=== PATIENT | female | born 1975 | race Hispanic/Latino ===

== ENCOUNTER 2023-06-28 06:33 | Inpatient (IN) | payer SELFPAY ==
[2023-06-28] VITALS (24 sets, daily range): BP systolic 98–150; BP diastolic 71–107; PULSE 63–80; RESP 13–21; O2SAT 97
[~2023-06-28] VITALS: Ht 162.6 cm; Wt 63.3 kg
[2023-06-28] MEDS ORDERED: 0.9%NACL 1000ML 3,000 ML IV ONE (07:00)
[2023-06-28 07:24] LABS: BASOPHILS # (AUTO) 0.04 K/uL (0.00-0.20); BASOPHILS % (AUTO) 0.7 % (0.0-5.0); EOSINOPHILS # (AUTO) 0.04 K/uL (0.00-0.70); EOSINOPHILS % (AUTO) 0.7 % (0.0-8.0); HEMATOCRIT 42.2 % (36-48); IMMATURE GRANULOCYTE ABSOLUTE 0.02 K/uL (0-1); LYMPHOCYTES # (AUTO) 2.3 K/uL (1.0-4.8); LYMPHOCYTES % (AUTO) 41.2 % (21.0-51.0); MEAN CORPUSCULAR HGB CONC 34.4 g/dL (32.0-36.0); MEAN CORPUSCULAR VOLUME 93.2 fL (79-99); MONOCYTES # (AUTO) 0.5 K/uL (0.1-1.0); MONOCYTES % (AUTO) 8.4 % (3.0-13.0); NEUTROPHILS # (AUTO) 2.7 K/uL (1.8-7.7); NEUTROPHILS % (AUTO) 48.6 % (40.0-77.0); PLATELET COUNT (AUTO) 166 K/uL (130-400); RED BLOOD CELL COUNT(AUTO) 4.53 MIL/uL (4.00-5.50); RED CELL DISTRIBUTION WIDTH 13.1 % (11.0-15.5); WHITE BLOOD COUNT (AUTO) 5.5 K/uL (4.8-10.8)
[2023-06-28] MEDS ORDERED: GLUCAGON 1MG KIT 1 MG ML ONE (07:30)
[2023-06-28 07:44] LABS: CREATININE 1.2 mg/dL (0.5-1.5); MAGNESIUM 1.7 mg/dL (1.80-2.40); POTASSIUM 3.5 mmol/L (3.5-5.1); SALICYLATE 8.7 mg/dL (2.8-20.0)
[2023-06-28] MEDS ORDERED: 0.9%NACL 1000ML 1,000 ML IV SCH (11:30)
[2023-06-28] MEDS ORDERED: MAGNESIUM 2GM PREMIX 50ML 50 ML IV SCH (11:30)
[2023-06-28] MEDS ORDERED: ACETAMINOPHEN 500 MG TABLET PO PRN (11:30)
[2023-06-28 12:08] LABS: INR 1.03 (0.85-1.15); PROTHROMBIN TIME 11.9 SEC (9.6-11.6)
[2023-06-28 12:10] LABS: PARTIAL THROMBOPLASTIN TIME 27.9 SEC (26.3-35.5)
[2023-06-28] MEDS ORDERED: SILD20TA14 PO (12:15)
[2023-06-28] MEDS: FAMOTIDINE 20MG VIAL IV SCH ×2 (12:22→23:15)
[2023-06-28] MEDS: CEFTRIAXONE 1G VIAL IVPB SCH (12:22)
[2023-06-28 12:26] LABS: ALBUMIN 2.7 g/dL (3.5-5.0); BILIRUBIN,DIRECT 0.1 mg/dL (0.0-0.3); BILIRUBIN,TOTAL 0.6 mg/dL (0.2-1.0); THYROID STIMULATING HORMONE 0.25 uIU/mL (0.36-3.74); TOTAL PROTEIN, SERUM 5.3 g/dL (6.0-8.3)
[2023-06-28] MEDS ORDERED: NOREPINEPHRIN 4MG/NS 250ML 250 ML IV SCH (12:30)
[2023-06-28] MEDS ORDERED: THIAMINE HCL 100 MG/ML 2ML VIAL IVP ONE (13:00)
[2023-06-28] MEDS ORDERED: MIDODRINE HCL 5 MG TABLET PO PRN (14:00)
[2023-06-28] MEDS ORDERED: ENOXAPARIN SODIUM 60 MG/0.6 ML SQ SCH (14:30)
[2023-06-28 15:40] LABS: ABG BASE EXCESS -7.1 mmol/L (-2.0-3.0); ABG HCO3 15.7 mmol/L (21.0-28.0); ABG PCO2 26 mmHg (32-45); ABG PH 7.403 (7.35-7.450); DEVICE COMMENT RR; PO2, ARTERIAL BG 60.9 mmHg (83.0-108.0); VENT MODE, BG NC (ROOM AIR)
[2023-06-28] MEDS ORDERED: ONDANSETRON 4MG INJ ONE (16:11)
[2023-06-28] MEDS ORDERED: ONDANSETRON 4MG INJ IVP PRN (16:30)
[2023-06-28 17:02] LABS: SARS-CoV-2, RNA, NAAT NEGATIVE SARS CoV-2 (NEGATIVE)
[2023-06-28 17:08] LABS: INFLUENZA TYPE A Negative For Type A (NEGATIVE); INFLUENZA TYPE B Negative For Type B (NEGATIVE)
[2023-06-28] MEDS ORDERED: KCL 20 MEQ ERTAB PO PRN (18:00)
[2023-06-28] MEDS ORDERED: POTASSIUM CHLORIDE 10% ELIXIR 20 MEQ/15 ML UDCUP PO PRN (18:00)
[2023-06-28] MEDS ORDERED: POTASSIUM CHLORIDE 20MEQ/100ML 100 ML IV PRN (18:00)
[2023-06-28 18:03] LABS: APPEARANCE,URINE CLEAR (CLEAR); BILIRUBIN,URINE NEGATIVE (NEGATIVE); GLUCOSE, URINE (UA) NEGATIVE (NEGATIVE); KETONES,URINE NEGATIVE (NEGATIVE); LEUKOCYTE ESTERASE ,URINE NEGATIVE Leu/uL (NEGATIVE); NITRATE,URINE NEGATIVE (NEGATIVE); OCCULT BLOOD,URINE NEGATIVE (NEGATIVE); PH,URINE 5.5 (5.0-8.0); PROTEIN,URINE 20 mg/dL (NEGATIVE); UROBILINOGEN,URINE 0.2 mg/dL (0.2-1.0)
[2023-06-28 18:05] LABS: COLOR,URINE YELLOW (YELLOW)
[2023-06-28 18:06] LABS: ADD UA MICROSCOPIC YES
[2023-06-28 18:07] LABS: MUCUS,URINE RARE LPF (None Seen); RBC,URINE 0-1 /HPF (0-1); SQUAMOUS EPITHELIAL CELL,UR RARE /HPF (0-2); WBC,URINE 0-1 /HPF (0-1)
[2023-06-28 18:11] LABS: AMPHET/METH SCREEN,URINE POSITIVE (NEGATIVE); BARBITURATE SCREEN, URINE NEGATIVE (NEGATIVE); BENZODIAZEPINES SCREEN,URINE NEGATIVE (NEGATIVE); CANNABINOID SCREEN,URINE NEGATIVE (NEGATIVE); COCAINE SCREEN,URINE NEGATIVE (NEGATIVE); OPIATE SCREEN,URINE NEGATIVE (NEGATIVE); PHENCYCLIDINE SCREEN,URINE NEGATIVE (NEGATIVE)
[2023-06-28 18:27] LABS: HEPATITIS A IGM ANTIBODY Non-Reactive (Nonreactive); HEPATITIS B CORE IGM ANTIBODY Non-Reactive (Negative); HEPATITIS B SURFACE ANTIGEN Non-Reactive (Nonreactive); HEPATITIS C ANTIBODY Non-Reactive (Nonreactive)
[2023-06-28] MEDS: ENOXAPARIN SODIUM 60 MG/0.6 ML SQ SCH (21:16)
[2023-06-29] VITALS (48 sets, daily range): BP systolic 82–125; BP diastolic 31–90; PULSE 60–86; RESP 8–27; O2SAT 94–96
[2023-06-29 05:40] LABS: BASOPHILS # (AUTO) 0.04 K/uL (0.00-0.20); BASOPHILS % (AUTO) 0.7 % (0.0-5.0); EOSINOPHILS # (AUTO) 0.08 K/uL (0.00-0.70); EOSINOPHILS % (AUTO) 1.4 % (0.0-8.0); HEMATOCRIT 42.2 % (36-48); IMMATURE GRANULOCYTE ABSOLUTE 0.01 K/uL (0-1); LYMPHOCYTES # (AUTO) 2.6 K/uL (1.0-4.8); LYMPHOCYTES % (AUTO) 44.4 % (21.0-51.0); MEAN CORPUSCULAR HEMOGLOBIN 31.2 pg (27.0-33.0); MEAN CORPUSCULAR HGB CONC 33.9 g/dL (32.0-36.0); MEAN CORPUSCULAR VOLUME 91.9 fL (79-99); MONOCYTES # (AUTO) 0.4 K/uL (0.1-1.0); MONOCYTES % (AUTO) 6.8 % (3.0-13.0); NEUTROPHILS # (AUTO) 2.7 K/uL (1.8-7.7); NEUTROPHILS % (AUTO) 46.5 % (40.0-77.0); PLATELET COUNT (AUTO) 188 K/uL (130-400); RED BLOOD CELL COUNT(AUTO) 4.59 MIL/uL (4.00-5.50); RED CELL DISTRIBUTION WIDTH 13.5 % (11.0-15.5); WHITE BLOOD COUNT (AUTO) 5.9 K/uL (4.8-10.8)
[2023-06-29 06:24] LABS: ALBUMIN 2.6 g/dL (3.5-5.0); BILIRUBIN,TOTAL 0.5 mg/dL (0.2-1.0); MAGNESIUM 2.1 mg/dL (1.80-2.40); POTASSIUM 4.1 mmol/L (3.5-5.1); TOTAL PROTEIN, SERUM 5.5 g/dL (6.0-8.3)
[2023-06-29] MEDS: ENOXAPARIN SODIUM 60 MG/0.6 ML SQ SCH ×2 (09:10→20:59)
[2023-06-29] MEDS: Vitamin B Complex/Vit C/Folic Acid PO SCH (09:13)
[2023-06-29] MEDS: FAMOTIDINE 20MG VIAL IV SCH ×2 (10:32→23:59)
[2023-06-29] MEDS: CEFTRIAXONE 1G VIAL IVPB SCH (12:23)
[2023-06-29] MEDS ORDERED: LACTULOSE 20 GM/30 ML UDCUP PO PRN (23:00)
[2023-06-30] VITALS: BP 121/86; PULSE 76; RESP 18
[2023-06-30 04:00] VITALS: BP 119/93; PULSE 72; RESP 16
[2023-06-30 08:00] VITALS: BP 125/90; PULSE 77; RESP 18
[2023-06-30 08:45] VITALS: O2SAT 96
[2023-06-30] MEDS: Vitamin B Complex/Vit C/Folic Acid PO SCH (09:00)
[2023-06-30] MEDS: ENOXAPARIN SODIUM 60 MG/0.6 ML SQ SCH (10:31)
[2023-06-30] MEDS: FAMOTIDINE 20MG VIAL IV SCH (10:55)
[2023-06-30 12:00] VITALS: BP 123/79; PULSE 72; RESP 19
[2023-06-30] MEDS ORDERED: MIDO5TAB4 PO (12:11)
== END 2023-06-30 14:50 | disposition home or self-care (01) | DRG 312 ==
LOC: EDH 06:33 → EDHIP 06:34 → UNDOADMIN 11:13 → EDHIP 11:14 → 2CV 17:50 → 4BH 06-29 18:22
PROVIDERS: ADMIT Internal Medicine; ATTEND Internal Medicine
DX: I95.2 Hypotension due to drugs (principal); J96.01 Acute respiratory failure with hypoxia; I26.09 Other pulmonary embolism with acute cor pulmonale; E87.20 Acidosis, unspecified; E46 Unspecified protein-calorie malnutrition; Z20.822 Contact with and (suspected) exposure to COVID-19; I27.21 Secondary pulmonary arterial hypertension; I50.813 Acute on chronic right heart failure; I11.0 Hypertensive heart disease with heart failure; K75.9 Inflammatory liver disease, unspecified; F41.1 Generalized anxiety disorder; E05.90 Thyrotoxicosis, unspecified without thyrotoxic crisis or storm; T44.7X5A Adverse effect of beta-adrenoreceptor antagonists, initial encounter; T46.4X5A Adverse effect of angiotensin-converting-enzyme inhibitors, initial encounter; F41.0 Panic disorder [episodic paroxysmal anxiety]; R42 Dizziness and giddiness; F15.10 Other stimulant abuse, uncomplicated; Z90.49 Acquired absence of other specified parts of digestive tract; Z90.710 Acquired absence of both cervix and uterus; Z87.891 Personal history of nicotine dependence; Z91.148 Patient's other noncompliance with medication regimen for other reason; Y92.89 Other specified places as the place of occurrence of the external cause; Z68.24 Body mass index [BMI] 24.0-24.9, adult
CPT/HCPCS: 36415; 36600; 71045; 76705; 80048; 80053; 80074; 80076; 80305; 81001; 82010; 82533; 82550; 82803; 82948; 83605; 83735; 84145; 84439; 84443; 84481; 84703; 85025; 85378; 85610; 85651; 85730; 86140; 86850; 86900; 86901; 87040; 87088; 87635; 87804; 93005; 93306; G0378; G0481; J0696; J1610; J1650; J2405; J3411; J3475; J3490

== ENCOUNTER → 2024-01-11 | Outpatient (CLI) | payer OTHER ==
[~2024-01-11] MED LIST: MIDO5TAB4 PO
== END | disposition home or self-care (01) ==
LOC: RAH 15:39
PROVIDERS: ATTEND Internal Medicine
DX: I27.20 Pulmonary hypertension, unspecified (principal)
CPT/HCPCS: 71046

== ENCOUNTER 2024-05-05 12:32 | Emergency (ER) | payer MEDICAID, OTHER ==
[~2024-05-05] VITALS: Ht 162.6 cm; Wt 59.0 kg
--- NOTE | 2024-05-05 12:37 | ERN ---
ED Note History of Present Illness Stated Complaint: LEFT SIDE SHARP PAIN Chief Complaint: Rib Pain Time Seen by MD: 12:32 Dictation: PATIENT IS A 48-YEAR-OLD FEMALE HERE WITH COMPLAINTS OF SEVERE LEFT ANTERIOR CHEST WALL TENDERNESS, DESCRIBES IT HAS A CRAMP. SAID IT STARTED LAST NIGHT. WORSE WITH PALPATION OR INSPIRATION. NO NAUSEA VOMITING NO ABDOMINAL PAIN. SHE DOES HAVE A HISTORY OF PULMONARY HYPERTENSION. Allergies: Coded Allergies: No Known Drug Allergies (Unverified Allergy, Unknown, 06/28/23) Home Meds Active Scripts Midodrine HCl (Midodrine HCl) 5 Mg Tablet, 5 MG PO TID for 30 Days, #90 TAB 0 Refills Prov:BARRY CASTANEDA MD 06/30/23 Past Medical History Past Medical History: Hypertension Additional Past Medical Hx: AORTIC TEAR Surgical History: Cholecystectomy History: Not Applicable RN Note Reviewed/Agreed w/PFSH: Yes Review of System Dictation CONSTITUTIONAL: NEGATIVE EXCEPT FOR HPI HEAD/FACE: NEGATIVE EXCEPT FOR HPI EENT: NEGATIVE EXCEPT FOR HPI RESPIRATORY: NEGATIVE EXCEPT FOR HPI FOCAL LEFT ANTERIOR CHEST WALL TENDERNESS GASTROINTESTINAL/ABDOMINAL: NEGATIVE EXCEPT FOR HPI GENITOURINARY: NEGATIVE EXCEPT FOR HPI MUSCULOSKELETAL: NEGATIVE EXCEPT FOR HPI INTEGUMENTARY: NEGATIVE EXCEPT FOR HPI NEUROLOGICAL/PSYCH: NEGATIVE EXCEPT FOR HPI HEMATOLOGIC/LYMPHATIC: NEGATIVE EXCEPT FOR HPI ALL SYSTEMS NEGATIVE, EXCEPT NOTED ABOVE. 13 POINT REVIEW OF SYSTEMS ASSESSED AND ALL NEGATIVE EXCEPT FOR ABOVE. Initial Vital Sign VS Vital Signs Date Time Temp Pulse Resp B/P (MAP) Pulse Ox O2 Delivery O2 Flow Rate FiO2 05/05/24 12:35 97.0 86 20 135/96 98 Room Air 05/05/24 12:52 0 21 Physical Exam Dictation VITAL SIGNS REVIEWED GENERAL APPEARANCE: ALERT, ORIENTED X 3, MODERATE ACUTE DISTRESS, WELL DEVEL OPED, NOURISHED. HEAD AND FACE: NON-TRAUMATIC. EYES: PERRL, PINK CONJUNCTIVAS, EYELID NO TRAUMA, ANTERIOR CHAMBER WITH ARCUS SE NILIS. EARS: PINNAS INTACT AND NO SIGNS OF TRAUMA OR ERYTHEMA EAR CANALS CLEAR AND NO DISCHARGE TM NO ERYTHEMA NOSE: NO DISCHARGE, NO BLEEDING. OROPHARYNX: MOUTH NORMAL, TONGUE PINK, PHARYNX CLEAR,NO ERYTHEMA, TONSILS NO EXUDATES, NO ABSCESSES NOTED, MUCOUS MEMBRANE MOIST NECK: SUPPLE, NON-TENDER, NO THYROMEGALY, NO MASSES, NO JVD, NO BRUITS BREAST:DEFERRED CHEST: FOCAL TENDERNESS TO LEFT ANTERIOR CHEST, NO CREPITUS, NO PARADOXICAL MOVEMENT, NO RETRACTIONS REPRODUCES WITH PALPATION OR INSPIRATION LUNGS:CLEAR, WELL-VENTILATED, SYMMETRIC, NO RALES, NO WHEEZING, NO RHONCHI, NO STRIDOR, GOOD BREATH SOUNDS BILATERALLY HEART: REGULAR RATE, REGULAR RHYTHM, NO MURMUR, NO GALLOPS VASCULAR: NO PERIPHERAL EDEMA, ABDOMEN: SOFT, POSITIVE BOWEL SOUNDS, NONDISTENDED, NO GUARDING, NONTENDER, NO REBOUND, NO MASSES NO HEPATOMEGALY, NO SPLENOMEGALY, NO COHEN'S SIGN, NO HERNIAS. RECTAL: DEFERRED GENITAL: DEFERRED NEUROLOGICAL: NORMAL SPEECH, MOTOR FUNCTION INTACT, SENSORY FUNCTION INTACT MUSCULOSKELETAL: NECK NONTENDER, FULL RANGE OF MOTION, BACK NONTENDER, FULL RANGE OF MOTION, EXTREMITIES: NONTENDER, FULL RANGE OF MOTION SKIN: COLOR PINK, DRY, NO TURGOR, NO RASH, NO LACERATIONS, NO ABRASIONS, NO CONTUSIONS. LYMPHATIC: DEFERRED Results (Laboratory/Radiology) Laboratory/Radiology Laboratory Tests Test 05/05/24 12:52 White Blood Count 5.9 K/uL (4.8-10.8) Red Blood Count 4.89 MIL/uL (4.00-5.50) Hemoglobin 15.5 g/dL (12.0-16.0) Hematocrit 43.8 % (36-48) Mean Corpuscular Volume 89.6 fL (79-99) Mean Corpuscular Hemoglobin 31.7 pg (27.0-33.0) Mean Corpuscular Hemoglobin Concent 35.4 g/dL (32.0-36.0) Red Cell Distribution Width 12.7 % (11.0-15.5) Platelet Count 236 K/uL (130-400) Mean Platelet Volume 10.2 fL (7.5-10.5) Immature Granulocyte % (Auto) 0.2 % (0-1) Neutrophils (%) (Auto) 58.3 % (40.0-77.0) Lymphocytes (%) (Auto) 31.6 % (21.0-51.0) Monocytes (%) (Auto) 7.9 % (3.0-13.0) Eosinophils (%) (Auto) 1.5 % (0.0-8.0) Basophils (%) (Auto) 0.5 % (0.0-5.0) Neutrophils # (Auto) 3.4 K/uL (1.8-7.7) Lymphocytes # (Auto) 1.9 K/uL (1.0-4.8) Monocytes # (Auto) 0.5 K/uL (0.1-1.0) Eosinophils # (Auto) 0.09 K/uL (0.00-0.70) Basophils # (Auto) 0.03 K/uL (0.00-0.20) Absolute Immature Granulocyte (auto 0.01 K/uL (0-1) Nucleated Red Blood Cells 0.0 % (0.0-0.19) Sodium Level 141 mmol/L (136-145) Potassium Level 3.6 mmol/L (3.5-5.1) Chloride Level 106 mmol/L (101-111) Carbon Dioxide Level 25 mmol/L (21-32) Blood Urea Nitrogen 7 mg/dL (7-18) Creatinine 0.6 mg/dL (0.5-1.0) Glomerular Filtration Rate Calc 109 mL/min (>90) Random Glucose 118 mg/dL (70-105) H Total Calcium 8.7 mg/dL (8.5-10.1) Troponin I High Sensitivity 10 ng/L (4-50) CHEST 1VW REASON: LEFT ANTERIOR CHEST PAIN WORSE WITH PALPATION COMPARISON: 01/11/2024 FINDINGS: Single view of the chest was obtained. Lungs are clear. Heart size is normal. There is no pulmonary vascular congestion. Mediastinum and bony thorax appear unremarkable. IMPRESSION: 1. Normal single view chest x-ray. Labs Reviewed?: Yes EKG Comment: EKG SINUS RHYTHM/HEART RATE 76 NONSPECIFIC CHANGES IN LEADS TWO AND THREE ED Course ED Course Orders Procedure Category Date Status Time Cbc With Differential LAB 05/05/24 Complete 12:35 Troponin I High LAB 05/05/24 Complete Sensitivity 12:35 Ketorolac PHA 05/05/24 Complete Tromethamine 30mg/Ml 13:00 Morphine 2mg Syg PHA 05/05/24 Complete (Morphine 2mg Syg) 13:00 Ondansetron 4mg Inj PHA 05/05/24 Complete (Zofran 4mg Inj) 13:00 Chest 1vw RAD 05/05/24 Resulted 12:35 Basic Metabolic Panel LAB 05/05/24 Complete 12:35 12 Lead Ekg Tracing- EKG 05/05/24 Complete Technical 13:03 Methylprednisolone PHA 05/05/24 Complete Succ 125mg (Solu-Medr 13:30 Current Medications Medications (Trade) Dose Ordered Sig/Joaquin Route PRN Reason Start Time Stop Time Status Last Admin Dose Admin Ketorolac Tromethamine (toRADol) 30 mg ONCE ONCE IVP 05/05/24 13:00 05/05/24 13:01 DC 05/05/24 13:22 Methylprednisolone Sodium Succinate (Solu-medROL 125MG) 125 mg ONCE ONCE IVP 05/05/24 13:30 05/05/24 13:31 DC 05/05/24 13:33 Morphine Sulfate (morPHINE 2MG SYG) 2 mg ONCE ONCE IVP 05/05/24 13:00 05/05/24 13:01 DC 05/05/24 13:22 Ondansetron HCl (zoFRAN 4MG INJ) 4 mg ONCE ONCE IVP 05/05/24 13:00 05/05/24 13:01 DC 05/05/24 13:22 Vital Signs Date Time Temp Pulse Resp B/P (MAP) Pulse Ox O2 Delivery O2 Flow Rate FiO2 05/05/24 12:52 97.0 86 20 135/96 98 Room Air* 0 21 05/05/24 12:35 97.0 86 20 135/96 98 Room Air 1405, PATIENT STATES PAIN MARKEDLY RESOLVED AFTER TREATMENT. VITAL SIGNS ARE STABLE AND HEMODYNAMICALLY STABLE HEART Score Response (Comments) Value EKG: Repolarization changes 1 Age: 45-65yrs (+1) 1 Risk Factors: 1-2 risk factors (+1) 1 Initial Troponin: Normal limit (0) 0 Total 3 Medical Decision Making MDM MDM: DIFFERENTIAL DIAGNOSIS: ACS/AMI/PNEUMONIA/BRONCHITIS/COSTOCHOND RITIS/ELECTROLYTE IMBALANCE/DEHYDRATION RATIONALE: TESTS CONSIDERED AND ORDERED SECONDARY TO SHARED DECISION MAKING INCLUDE: EKG/LABS/RADIOLOGY PREVIOUS OUTSIDE RECORDS REVIEWED: OLD ER VISITS. REVIEWED RISK OF COMPLICATION AND/OR MORBIDITY OR MORTALITY OF PATIENT MANAGEMENT: NONE MEDICATIONS-PER MEDICATION RECONCILIATION NEED FOR HOSPITALIZATION: PATIENT DOES NOT MEET CRITERIA FOR HOSPITALIZATION. NO NEED FOR EMERGENCY MAJOR/MINOR SURGERY: NO THERE ARE NO SOCIAL CONCERNS WITH THIS PATIENT. PRESCRIPTION DRUG MANAGEMENT MEDROL/IBUPROFEN PRESCRIPTIONS WILL INCLUDE SYMPTOMATIC CARE PATIENT'S PRIOR EXTERNAL MEDICAL RECORDS FROM OTHER ER VISITS WERE REVIEWED BY ME INDICATED. PRIOR TESTING AND RESULTS FROM PREVIOUS VISITS WERE REVIEWED. PRIOR TESTS WERE TAKEN INTO ACCOUNT WITH MEDICAL DECISION MAKING AND RESOURCE UTILIZATION, INDEPENDENT HISTORIAN/HISTORIANS WERE USED TO OBTAIN COMPLETE MEDICAL HISTORY. I INDEPENDENTLY INTERPRETED THE TEST THAT WERE PERFORMED, RESULTS WERE REVIEWED BY ME AND CONSIDERED FINDINGS ON RADIOLOGY IF ORDERED. MEDICAL MANAGEMENT AND EXAMINATION INTERPRETATION DISCUSSIONS WERE HAD BY ME WITH OTHER QUALIFIED HEALTHCARE PROFESSIONALS INDICATED FOR THE PATIENT'S CARE. DX & DISP Disposition: Discharge Departure Impression: Primary Impression: Acute costochondritis Condition: Stable Scripts Ibuprofen (Ibuprofen) 600 Mg Tablet 600 MG PO Q6H PRN for PAIN, #30 TAB Prov: SANDEEP WALLACE NP 05/05/24 Methylprednisolone (Medrol) 4 Mg Tab.ds.pk 1 TAB PO AD for 6 Days, #21 TAB 0 Refills 6 on day 1 then reduce by one tablet daily until gone Prov: SANDEEP WALLACE NP 05/05/24 Additional Instructions: FOLLOW-UP WITH PRIMARY CARE PROVIDER IN 1 TO 2 DAYS. TAKE MEDICATIONS DIRECTED HERE IN THE EMERGENCY ROOM. OKAY TO CONTINUE HOME MEDICATIONS UNLESS OTHERWISE DISCUSSED DURING YOUR VISIT IN THE EMERGENCY ROOM TODAY. RETURN TO YOUR NEAREST EMERGENCY ROOM IF SYMPTOMS WORSEN OR IF THERE IS NO IMPROVEMENT. CALL 911 IF YOU NEED IMMEDIATE ASSISTANCE. TAKE TYLENOL OR MOTRIN [id number] NEEDED AND IF NO CONTRAINDICATIONS ARE PRESENT. INCREASE ORAL HYDRATION. A WOUND CULTURE OR URINE CULTURE WAS ORDERED HERE IN THE EMERGENCY ROOM DEPARTMENT PLEASE FOLLOW-UP WITH PRIMARY CARE PROVIDER AND ADVISE THEM TO GET REPEAT PORTS FROM OUR FACILITY. IF YOU HAD ANY DENNIS WRAP/SPLINTS THAT WERE APPLIED HERE, PLEASE DO NOT REMOVE THEM UNTIL YOU SEE YOUR PRIMARY CARE OR SPECIALTY. TAKE MEDROL DOSEPAK DIRECTED UNTIL GONE. TAKE IBUPROFEN EVERY8 HOURS WITH FOOD FOR24 HOURS, SEE YOUR PRIMARY CARE DOCTOR FOR FOLLOW UP AND MANAGEMENT. Referrals: SELF,REFERRAL (PCP) Time of Disposition: 14:06 I have reviewed the case, and I agree with, Diagnosis and Plan SANDEEP WALLACE NP May 05, 2024 12:37
[2024-05-05 12:52] VITALS: BP 135/96; PULSE 86; RESP 20; TEMP 97; O2SAT 98
[2024-05-05 13:01] LABS: BASOPHILS # (AUTO) 0.03 K/uL (0.00-0.20); BASOPHILS % (AUTO) 0.5 % (0.0-5.0); EOSINOPHILS # (AUTO) 0.09 K/uL (0.00-0.70); EOSINOPHILS % (AUTO) 1.5 % (0.0-8.0); HEMATOCRIT 43.8 % (36-48); IMMATURE GRANULOCYTE ABSOLUTE 0.01 K/uL (0-1); LYMPHOCYTES # (AUTO) 1.9 K/uL (1.0-4.8); LYMPHOCYTES % (AUTO) 31.6 % (21.0-51.0); MEAN CORPUSCULAR HEMOGLOBIN 31.7 pg (27.0-33.0); MEAN CORPUSCULAR HGB CONC 35.4 g/dL (32.0-36.0); MEAN CORPUSCULAR VOLUME 89.6 fL (79-99); MONOCYTES # (AUTO) 0.5 K/uL (0.1-1.0); MONOCYTES % (AUTO) 7.9 % (3.0-13.0); NEUTROPHILS # (AUTO) 3.4 K/uL (1.8-7.7); NEUTROPHILS % (AUTO) 58.3 % (40.0-77.0); PLATELET COUNT (AUTO) 236 K/uL (130-400); RED BLOOD CELL COUNT(AUTO) 4.89 MIL/uL (4.00-5.50); RED CELL DISTRIBUTION WIDTH 12.7 % (11.0-15.5); WHITE BLOOD COUNT (AUTO) 5.9 K/uL (4.8-10.8)
[2024-05-05 13:08] LABS: CREATININE 0.6 mg/dL (0.5-1.0); POTASSIUM 3.6 mmol/L (3.5-5.1)
[2024-05-05] MEDS: ondanSETRON 4MG INJ IVP ONE (13:22)
[2024-05-05] MEDS: ketOROlac 30MG VIAL (30MG/ML) IVP ONE (13:22)
[2024-05-05] MEDS: morPHINE 2 MG SYG IVP ONE (13:22)
--- NOTE | 2024-05-05 13:22 | EKG ---
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
[2024-05-05] MEDS: Solu-medROL 125MG VIAL IVP ONE (13:33)
--- NOTE | 2024-05-05 13:42 | HMCIMG ---
CHEST 1VW REASON: LEFT ANTERIOR CHEST PAIN WORSE WITH PALPATION COMPARISON: 01/11/2024 FINDINGS: Single view of the chest was obtained. Lungs are clear. Heart size is normal. There is no pulmonary vascular congestion. Mediastinum and bony thorax appear unremarkable. IMPRESSION: 1. Normal single view chest x-ray.
[2024-05-05] MEDS ORDERED: METH4TAB3 PO (14:09)
[2024-05-05] MEDS ORDERED: IBUP-2070 PO (14:09)
== END 2024-05-05 14:35 | disposition home or self-care (01) ==
LOC: EDH 12:32
DX: M94.0 Chondrocostal junction syndrome [Tietze] (principal); I10 Essential (primary) hypertension; Z79.899 Other long term (current) drug therapy; Z90.49 Acquired absence of other specified parts of digestive tract
CPT/HCPCS: 99285; 96374; 96375; 71045; 84484; 80048; 85025; 36415; 93005; J2270; J2919; J2405; J1885

== ENCOUNTER 2024-07-12 19:21 | Observation (INO) | payer MEDICAID ==
[~2024-07-12] VITALS: Ht 162.6 cm; Wt 59.0 kg
[~2024-07-12 19:21] MED LIST changes: +IBUP-2070 PO; +METH4TAB3 PO
[2024-07-12 20:04] LABS: ABG BASE EXCESS -3.2 mmol/L (-2.0-3.0); ABG HCO3 18.5 mmol/L (21.0-28.0); ABG PCO2 26 mmHg (32-45); ABG PH 7.477 (7.350-7.450); CARBON MONOXIDE 0.4 % (0.5-1.5); DEVICE COMMENT RB RN; PO2, ARTERIAL BG 74.6 mmHg (83.0-108.0); VENT MODE, BG RA (ROOM AIR)
[2024-07-12] MEDS: Solu-medROL 125MG VIAL IVP ONE (20:07)
[2024-07-12] MEDS: ASPIRIN 325MG TAB PO ONE (20:07)
[2024-07-12 20:09] LABS: SARS-CoV-2, RNA, NAAT NEGATIVE SARS CoV-2 (NEGATIVE)
[2024-07-12 20:13] LABS: INFLUENZA TYPE B Negative For Type B (NEGATIVE)
[2024-07-12 20:14] LABS: BASOPHILS # (AUTO) 0.02 K/uL (0.00-0.20); BASOPHILS % (AUTO) 0.4 % (0.0-5.0); HEMATOCRIT 43.9 % (36-48); IMMATURE GRANULOCYTE ABSOLUTE 0.02 K/uL (0-1); LYMPHOCYTES # (AUTO) 0.8 K/uL (1.0-4.8); LYMPHOCYTES % (AUTO) 17.2 % (21.0-51.0); MEAN CORPUSCULAR HEMOGLOBIN 32.4 pg (27.0-33.0); MEAN CORPUSCULAR HGB CONC 33.7 g/dL (32.0-36.0); MEAN CORPUSCULAR VOLUME 96.1 fL (79-99); MONOCYTES # (AUTO) 0.4 K/uL (0.1-1.0); MONOCYTES % (AUTO) 8.8 % (3.0-13.0); NEUTROPHILS # (AUTO) 3.4 K/uL (1.8-7.7); NEUTROPHILS % (AUTO) 73.2 % (40.0-77.0); PLATELET COUNT (AUTO) 125 K/uL (130-400); RED BLOOD CELL COUNT(AUTO) 4.57 MIL/uL (4.00-5.50); RED CELL DISTRIBUTION WIDTH 13.6 % (11.0-15.5); WHITE BLOOD COUNT (AUTO) 4.7 K/uL (4.8-10.8)
[2024-07-12] MEDS: IpraTROPium/alBUTERol SULFATE 3 ML SOLUTION IH ONE (20:17)
[2024-07-12 20:22] LABS: INFLUENZA TYPE A Positive For Type A (NEGATIVE)
[2024-07-12 20:24] LABS: CREATININE 0.6 mg/dL (0.5-1.0); POTASSIUM 4.4 mmol/L (3.5-5.1)
[2024-07-12 20:33] VITALS: PULSE 91; RESP 19
[2024-07-12 20:41] LABS: B-TYPE NATRIURETIC PEPTIDE 531 pg/mL (0-100)
--- NOTE | 2024-07-12 20:41 | HMCIMG ---
CHEST 1VW CLINICAL HISTORY: CHEST PAIN COMPARISON: 05/05/2024 TECHNIQUE: Single view of the chest was obtained. FINDINGS: Lungs are clear. Cardiac size is at the upper limits of normal to mildly enlarged. The bony structures are within normal limits. IMPRESSION: Borderline heart size.
[2024-07-12] MEDS: ondanSETRON 4MG INJ IVP ONE (20:47)
[2024-07-12] MEDS: OSELTAMIVIR PHOSPHATE 75 MG CAP PO ONE (20:47)
[2024-07-12] MEDS: morPHINE 4 MG SYG IVP ONE (20:47)
--- NOTE | 2024-07-12 21:04 | ERN ---
ED Note History of Present Illness Stated Complaint: SHORTNESS OF BREATH Chief Complaint: Shortness of Breath Time Seen by MD: 19:27 Time Seen by Midlevel: 19:27 Dictation: The patient is a 48-year-old female with a history of pulmonary hypertension who presents to the emergency department with complaints of shortness of breath, nonproductive cough, midsternal chest pressure, body aches onset 3 days ago. Reports chest pain to be pressure like and worst with cough. Reports nausea but no vomiting. Allergies: Coded Allergies: No Known Drug Allergies (Unverified Allergy, Unknown, 06/28/23) Home Meds Active Scripts Ibuprofen (Ibuprofen) 600 Mg Tablet, 600 MG PO Q6H PRN for PAIN, #30 TAB Prov:SANDEEP WALLACE NP 05/05/24 Methylprednisolone (Medrol) 4 Mg Tab.ds.pk, 1 TAB PO AD for 6 Days, #21 TAB 0 Refills 6 on day 1 then reduce by one tablet daily until gone Prov:SANDEEP WALLACE NP 05/05/24 Midodrine HCl (Midodrine HCl) 5 Mg Tablet, 5 MG PO TID for 30 Days, #90 TAB 0 Refills Prov:BARRY CASTANEDA MD 06/30/23 Past Medical History Past Medical History: Hypertension Additional Past Medical Hx: AORTIC TEAR Surgical History: Cholecystectomy History: Not Applicable RN Note Reviewed/Agreed w/PFSH: Yes Review of System Dictation Constitutional: Negative for fever,chills, and weight loss Eyes: Negative for injury, pain,redness, and discharge ENT: Negative for injury,pain or swelling Cardiovascular: Negative for palpitations, and edema positive for chest pain Respiratory: Negative for and wheezing, positive for shortness of breath, cough Abdomen/GI: Negative for abdominal pain, , vomiting, diarrhea, and constipation positive for nausea Back: Negative for injury and pain : Negative for injury, bleeding and discharge MS/Extremity: Negative for injury and deformity Skin: Negative for rash, and discoloration Neuro: Negative for headache, weakness, numbness, tingling, and seizure Psych: Negative for suicide ideation, homicidal ideation, and hallucinations Initial Vital Sign VS Vital Signs Date Time Temp Pulse Resp B/P (MAP) Pulse Ox O2 Delivery O2 Flow Rate FiO2 07/12/24 19:24 98.6 56 14 179/93 92 Nasal Cannula 2.0 07/12/24 19:46 32 Physical Exam Dictation Vital Signs reviewed General Appearance: Alert, oriented x 3, mildly distress, well developed, nourished. Head and Face: non-traumatic. Eyes: PERRL, pink conjunctivas, eyelid no trauma, anterior chamber with arcus senilis. Ears: Pinnas intact and no signs of trauma or erythema ear canals clear and no discharge TM no erythema Nose: No discharge, no bleeding. Oropharynx: Mouth normal, tongue pink. pharynx clear,no erythema, tonsils no exudates, no abscesses noted, mucous membrane moist Neck: Supple, non-tender, no thyromegaly, no masses, no JVD, no bruits Breast:Deferred Chest:No tenderness, no crepitus, no paradoxical movement, no retractions Lungs:Clear, well-ventilated, symmetric, no rales, no wheezing, no rhonchi, no stridor, good breath sounds bilaterally Heart: Regular rate, regular rhythm, no murmur, no gallops Vascular: no peripheral edema, Abdomen: Soft, positive bowel sounds, nondistended, no guarding, nontender, no rebound, no masses no hepatomegaly, no splenomegaly, no Mckeon's sign, no hernias. Rectal: Deferred Genital: Deferred Neurological: Normal speech, motor function intact, sensory function intact Musculoskeletal: Neck nontender, full range of motion, back nontender, full range of motion, Extremities: nontender, full range of motion Skin: Color pink, dry, no turgor, no rash, no lacerations, no abrasions, no contusions. Lymphatic: Deferred Results (Laboratory/Radiology) Laboratory/Radiology Laboratory Tests Test 07/12/24 19:50 07/12/24 20:00 07/12/24 20:02 Influenza Type A Antigen Positive For Type A Influenza Type B Antigen Negative For Type B SARS-CoV-2, RNA, NAAT NEGATIVE SARS CoV-2 White Blood Count 4.7 K/uL (4.8-10.8) L Red Blood Count 4.57 MIL/uL (4.00-5.50) Hemoglobin 14.8 g/dL (12.0-16.0) Hematocrit 43.9 % (36-48) Mean Corpuscular Volume 96.1 fL (79-99) Mean Corpuscular Hemoglobin 32.4 pg (27.0-33.0) Mean Corpuscular Hemoglobin Concent 33.7 g/dL (32.0-36.0) Red Cell Distribution Width 13.6 % (11.0-15.5) Platelet Count 125 K/uL (130-400) L Mean Platelet Volume 11.3 fL (7.5-10.5) H Immature Granulocyte % (Auto) 0.4 % (0-1) Neutrophils (%) (Auto) 73.2 % (40.0-77.0) Lymphocytes (%) (Auto) 17.2 % (21.0-51.0) L Monocytes (%) (Auto) 8.8 % (3.0-13.0) Eosinophils (%) (Auto) 0.0 % (0.0-8.0) Basophils (%) (Auto) 0.4 % (0.0-5.0) Neutrophils # (Auto) 3.4 K/uL (1.8-7.7) Lymphocytes # (Auto) 0.8 K/uL (1.0-4.8) L Monocytes # (Auto) 0.4 K/uL (0.1-1.0) Eosinophils # (Auto) 0.00 K/uL (0.00-0.70) Basophils # (Auto) 0.02 K/uL (0.00-0.20) Absolute Immature Granulocyte (auto 0.02 K/uL (0-1) Nucleated Red Blood Cells 0.0 % (0.0-0.19) Sodium Level 137 mmol/L (136-145) Potassium Level 4.4 mmol/L (3.5-5.1) Chloride Level 104 mmol/L (101-111) Carbon Dioxide Level 22 mmol/L (21-32) Blood Urea Nitrogen 11 mg/dL (7-18) Creatinine 0.6 mg/dL (0.5-1.0) Glomerular Filtration Rate Calc 109 mL/min (>90) Random Glucose 100 mg/dL (70-105) Total Calcium 8.2 mg/dL (8.5-10.1) L Total Creatine Kinase 187 U/L (21-232) # Troponin I High Sensitivity 19 ng/L (4-50) B-Type Natriuretic Peptide 531 pg/mL (0-100) H Blood Gas Specimen Type Arterial Arterial Blood pH 7.477 (7.350-7.450) Arterial Blood Partial Pressure CO2 26 mmHg (32-45) L Arterial Blood Partial Pressure O2 74.6 mmHg (83.0-108.0) L Arterial Blood HCO3 18.5 mmol/L (21.0-28.0) L Arterial Blood Oxygen Saturation 95.0 % (94.0-98.0) Arterial Blood Base Excess -3.2 mmol/L (-2.0-3.0) L Hemoglobin (Blood Gas) 14.7 g/dL (12.0-16.0) Sodium (Blood Gas) 136 MMOL/L (136-145) Bedside Potassium (Blood Gas) 3.5 MMOL/L (3.4-4.5) Bedside Chloride (Blood Gas) 107 MMOL/L (98-107) Bedside Glucose (Blood Gas) 108 MG/DL (65-95) H Bedside Ionized Calcium (Blood Gas) 1.18 MMOL/L (1.15-1.33) Bedside Lactic Acid (Blood Gas) 0.89 MMOL/L (0.36-0.75) H Blood Gas Temperature 37.0 CELSIUS (35.5-37.0) Blood Gas Vent Mode RA (ROOM AIR) FiO2 21.0 % Blood Gas Specimen Comment RB RN REASON: CHEST PAIN ORDERING PHYSICIAN: CIRILO RICHARD PROCEDURE: CXR1VW - CHEST 1VW CHEST 1VW CLINICAL HISTORY: CHEST PAIN COMPARISON: 05/05/2024 TECHNIQUE: Single view of the chest was obtained. FINDINGS: Lungs are clear. Cardiac size is at the upper limits of normal to mildly enlarged. The bony structures are within normal limits. IMPRESSION: Borderline heart size. Labs Reviewed?: Yes EKG: (+) rhythm (Sinus rhythm) EKG Comment: Date:07/12/2024 Time:193 Ventricular rate:94 SC interval:151 QRS duration:86 QT/QTc:441 EKG interpretation: Sinus rhythm Reviewed by ED Attending no STEMI ED Course ED Course Orders Procedure Category Date Status Time Vital Signs Per CPOE 07/12/24 Transmitted Routine 19:37 B-Type Natriuretic LAB 07/12/24 Complete Peptide 19:37 Chest 1vw RAD 07/12/24 Resulted 19:37 12 Lead Ekg Tracing- EKG 07/12/24 Logged Technical 19:37 Oxygen By Nc/Pulse Ox CPOE 07/12/24 Transmitted 19:37 Maintain Iv CPOE 07/12/24 Transmitted 19:37 Iv Insertion CPOE 07/12/24 Transmitted 19:37 Cardiac Monitoring CPOE 07/12/24 Transmitted 19:37 Pulse Oximetry With CPOE 07/12/24 Transmitted Vs And Prn 19:37 Cbc With Differential LAB 07/12/24 Complete 19:37 Activity: Br W/Brp CPOE 07/12/24 Transmitted With Assist 19:37 Creatine Kinase, Total LAB 07/12/24 Complete 19:37 Urinalysis Profile LAB 07/12/24 Logged 19:37 Troponin Poc Order LAB 07/12/24 Complete Only 19:37 Bedside Troponin-I LAB.ER 07/12/24 In Process (Poc) 19:37 Basic Metabolic Panel LAB 07/12/24 Complete 19:37 Arterial Blood Gas + RT 07/12/24 Transmitted 19:37 Influenza Type A & B, LAB 07/12/24 Complete Rapid 19:40 Covid Rna Naat LAB 07/12/24 Complete 19:40 Troponin I High LAB 07/12/24 Complete Sensitivity 19:46 Aspirin 325mg Tab PHA 07/12/24 Complete (Aspirin 325mg Tab) 20:00 Ipratropium/Albuterol PHA 07/12/24 Complete Neb (Duoneb) 20:00 Methylprednisolone PHA 07/12/24 Complete Succ 125mg (Solu-Medr 20:00 Drug Screen Urine LAB 07/12/24 Logged 19:49 Arterial Blood Gas LAB 07/12/24 Complete Arterial + 20:02 Oseltamivir Phosphate PHA 07/12/24 Complete (Tamiflu) 21:00 Morphine 4mg Syg PHA 07/12/24 Complete (Morphine 4mg Syg) 21:00 Ondansetron 4mg Inj PHA 07/12/24 Complete (Zofran 4mg Inj) 21:00 Admit Orders ADM 07/12/24 Transmitted 21:40 Droplet Precautions CPOE 07/12/24 Transmitted 21:40 Consistent Carb DIET 07/13/24 Transmitted Breakfast Basic Metabolic Panel LAB 07/13/24 Verified 04:00 Cbc With Differential LAB 07/13/24 Verified 04:00 Magnesium LAB 07/13/24 Verified 04:00 Phosphorus LAB 07/13/24 Verified 04:00 Urinalysis Profile LAB 07/12/24 Transmitted 22:48 Activity: Ad Shereen CPOE 07/12/24 Transmitted 22:48 Condition: CPOE 07/12/24 Transmitted 22:48 Oxygen By Nc/Pulse Ox CPOE 07/12/24 Transmitted 22:48 Vital Signs(Adult CPOE 07/12/24 Transmitted Hospitalist) 22:48 Telemetry Monitoring CPOE 07/12/24 Transmitted 22:48 Acetaminophen 325 Tab PHA 07/12/24 Transmitted (Tylenol 325mg Tab 23:00 Famotidine 20mg Tab PHA 07/13/24 Transmitted (Pepcid 20mg Tab) 09:00 Enoxaparin Sodium 40 PHA 07/13/24 Transmitted Mg/0.4 Ml (Lovenox) 09:00 Hydralazine 20mg Inj PHA 07/12/24 Transmitted (Apresoline 20mg In 23:00 Morphine 4mg Syg PHA 07/12/24 Transmitted (Morphine 4mg Syg) 23:00 Ondansetron 4mg Inj PHA 07/12/24 Transmitted (Zofran 4mg Inj) 23:00 Guaifenesin Sug-Kasi PHA 07/12/24 Transmitted 100 Mg/5ml (Robituss 23:00 Oseltamivir Phosphate PHA 07/13/24 Transmitted (Tamiflu) 09:00 Current Medications Medications (Trade) Dose Ordered Sig/Joaquin Route PRN Reason Start Time Stop Time Status Last Admin Dose Admin Albuterol (DUOneb) 1 UDVIAL ONCE ONCE IH 07/12/24 20:00 07/12/24 20:01 DC 07/12/24 20:17 Aspirin (Aspirin 325mg Tab) 325 mg ONCE ONCE PO 07/12/24 20:00 07/12/24 20:01 DC 07/12/24 20:07 Methylprednisolone Sodium Succinate (Solu-medROL 125MG) 125 mg ONCE ONCE IVP 07/12/24 20:00 07/12/24 20:01 DC 07/12/24 20:07 Morphine Sulfate (morPHINE 4MG SYG) 4 mg ONCE ONCE IVP 07/12/24 21:00 07/12/24 21:01 DC 07/12/24 20:47 Ondansetron HCl (zoFRAN 4MG INJ) 4 mg ONCE ONCE IVP 07/12/24 21:00 07/12/24 21:01 DC 07/12/24 20:47 Oseltamivir Phosphate (Tamiflu) 75 mg ONCE ONCE PO 07/12/24 21:00 07/12/24 21:01 DC 07/12/24 20:47 Vital Signs Date Time Temp Pulse Resp B/P (MAP) Pulse Ox O2 Delivery O2 Flow Rate FiO2 07/12/24 21:01 98.8 88 18 127/93 99 Room Air* 0 21 07/12/24 20:33 91 19 07/12/24 19:46 98.8 97 18 126/100 97 Nasal Cannula* 3 32 07/12/24 19:24 98.6 56 14 179/93 92 Nasal Cannula 2.0 Medical Decision Making MDM MDM: The patient is a 48-year-old female with a history of pulmonary hypertension who presents to the emergency department with complaints of shortness of breath, nonproductive cough, midsternal chest pressure, body aches onset 3 days ago. Reports chest pain to be pressure like and worst with cough. Reports nausea but no vomiting. Differential diagnosis: ACS, pneumonia, pneumothorax, upper respiratory infection Comorbidities: Pulmonary hypertension Tests considered and not ordered secondary to shared decision making include: none Previous outside records reviewed: none Risk of complication and/or morbidity or mortality of patient management: The patient meets criteria for admission. Need for emergency major/minor surgery: No There are no social concerns with this patient. I independently interpreted the tests I ordered (labs, urinalysis, etc.). I discussed the case with the hospitalist for admission. Erick LARA I discussed the case with the following specialists: none. Historian: pateint. I independently interpreted imaging studies and EKGs that I ordered (US, CT, XR, EKG, etc.). External chart review: none. Medical management and examination interpretation discussions were had by me with other qualified healthcare professionals as indicated for the patient's care. DX & DISP Disposition: Inpatient Decision to Admit Date: Jul 12, 2024 Decision to Admit Time: 21:40 Departure Impression: Primary Impression: Respiratory distress Additional Impressions: Hypoxemia, Influenza A, Elevated brain natriuretic peptide (BNP) level, Hx of pulmonary hypertension Critical Time: 30 minutes (Critical Care Procedure NoteAuthorized and Performed by: meTotal critical care time: Approximately 36 minutesDue to a high probability of clinically significant, life threatening deterioration, the patient required my highest level of preparedness to intervene emergently and I personally spent this critical care time directly and personally managing the patient. This critical care time included obtaining a history; examining the patient; pulse oximetry; ordering and review of studies; arranging urgent treatment with development of a management plan; evaluation of patient's response to treatment; frequent reassessment; and, discussions with other providers.This critical care time was performed to assess and manage the high probability of imminent, life-threatening deterioration that could result in multi-organ failure. It was exclusive of separately billable procedures and treating other patients and teaching time.Please see MDM section and the rest of the note for further information on patient assessment and treatment.) Condition: Stable Referrals: EDDI PEARSON MD (PCP) I have examined patient, & reviewed all documents, & agreed W/ the Diagnosis, and Plan I performed a substantive portion of the visit. I have reviewed and personally made and approve the management plan that is documented in the notes by myself with MARCO/resident. I acknowledged full responsibility for the patient's management plan. 48-year-old female with pulmonary hypertension presents in respiratory distress. Oxygen saturation showed hypoxemia, placed on 2 L oxygen. Likely to be the flu. Started on Tamiflu. Admitted. CIRILO RICHARDP Jul 12, 2024 21:04 MOJGAN KEITH DO Jul 12, 2024 22:56
--- NOTE | 2024-07-12 21:34 | NUR ---
MED NOT RECON, NOT AVAIL AT BEDSIDE
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
--- NOTE | 2024-07-12 21:47 | NUR ---
SPOKEN TO PATIENT'S DAUGHTER VALERI AND SISTER KING OVER THE PHONE GIVEN THEM BOTH AN UPDATE REGARDING PT'S STATUS.
[2024-07-12] MEDS ORDERED: acetaMINOPHEN 325 MG TAB PO PRN (23:00)
[2024-07-12] MEDS ORDERED: hydrALAZine 20MG/ML VIAL IV PRN (23:00)
[2024-07-12] MEDS ORDERED: ondanSETRON 4MG INJ IV PRN (23:00)
[2024-07-12] MEDS: guaiFENesin SUGAR-FREE 100 MG/5 ML UDCUP PO PRN (23:13)
[2024-07-12] MEDS: IpraTROPium/alBUTERol SULFATE 3 ML SOLUTION IH SCH (23:47)
[2024-07-12 23:50] VITALS: PULSE 93; RESP 17; RESP 19; O2SAT 97
[2024-07-13] MEDS: morPHINE 4 MG SYG IVP PRN (04:29)
[2024-07-13 06:47] LABS: BASOPHILS # (AUTO) 0.01 K/uL (0.00-0.20); BASOPHILS % (AUTO) 0.2 % (0.0-5.0); HEMATOCRIT 40.3 % (36-48); IMMATURE GRANULOCYTE ABSOLUTE 0.02 K/uL (0-1); LYMPHOCYTES # (AUTO) 0.3 K/uL (1.0-4.8); LYMPHOCYTES % (AUTO) 6.1 % (21.0-51.0); MEAN CORPUSCULAR HEMOGLOBIN 32.3 pg (27.0-33.0); MEAN CORPUSCULAR HGB CONC 34.2 g/dL (32.0-36.0); MEAN CORPUSCULAR VOLUME 94.4 fL (79-99); MONOCYTES # (AUTO) 0.2 K/uL (0.1-1.0); MONOCYTES % (AUTO) 3.3 % (3.0-13.0); NEUTROPHILS # (AUTO) 4.6 K/uL (1.8-7.7); PLATELET COUNT (AUTO) 129 K/uL (130-400); RED BLOOD CELL COUNT(AUTO) 4.27 MIL/uL (4.00-5.50); RED CELL DISTRIBUTION WIDTH 13.2 % (11.0-15.5); WHITE BLOOD COUNT (AUTO) 5.1 K/uL (4.8-10.8)
[2024-07-13 07:05] LABS: CREATININE 0.7 mg/dL (0.5-1.0); MAGNESIUM 1.6 mg/dL (1.80-2.40); PHOSPHORUS 2.5 mg/dL (2.5-4.9); POTASSIUM 3.8 mmol/L (3.5-5.1)
--- NOTE | 2024-07-13 07:07 | EKG ---
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
[2024-07-13 07:14] VITALS: PULSE 100; RESP 18
[2024-07-13 07:32] VITALS: PULSE 100; RESP 18; O2SAT 94
--- NOTE | 2024-07-13 07:57 | NUR ---
Olga solo in ED - 07/13/24 at 0824 by ADOLPH NG TUBE REFUSED FOR NOW PATIENT ALERT X1, PATIENTS DAUGHTER AND POA SPOKE TO US AND WANTED TO HOLD OFF ON NG TUBE FOR NOW TO KEEP PATIENT "COMFORTABLE"
[2024-07-13] MEDS: OSELTAMIVIR PHOSPHATE 75 MG CAP PO SCH (08:30)
[2024-07-13] MEDS: FAMOTIDINE 20MG TAB PO SCH (08:30)
[2024-07-13] MEDS ORDERED: ENOXAPARIN SODIUM 40 MG/0.4 ML SYRINGE SQ SCH (09:00)
[2024-07-13] MEDS: MAGNESIUM 2GM PREMIX 50ML 50 ML IV PRN (09:34)
[2024-07-13 11:15] VITALS: PULSE 95; RESP 18
--- NOTE | 2024-07-13 15:25 | NUR ---
DCP: HOME SW met with pt who states she and her BF Carlos Alberto Posadas [phone] live with his mother at this time. Pt is unemployed, independent, uses no DME or in home care services. PCP is Almaz Pruett and uses [facility] for his rx. pt denies need for SNF or referral. pt will dc home. Addendum: 07/13/24 at 1529 by ARMAAN DAN Amended: Links added.
[2024-07-13] MEDS ORDERED: SILD20TA14 PO (17:02)
[2024-07-13] MEDS ORDERED: OSEL75 PO (17:02)
[2024-07-13] MEDS ORDERED: GUAI237L82 PO (17:02)
--- NOTE | 2024-07-13 17:12 | DS ---
Discharge Summary Hospital Course Summary: The patient is a 48-year-old female with a medical history of Stage 3 pulmonary hypertension, Chronic cigarette smoker, anxiety, and panic disorder presented to the emergency department on July 12, 2024, with chief complaints of body aches, fatigue, and difficulty breathing with exertion. Her boyfriend had been diagnosed with the flu four days prior, and she had been exposed to him. The patient has a history of Stage [address] Pruett at the [facility]. She denied experiencing fever, chills, chest pain, leg swelling, or any other symptoms. Upon presentation, her blood pressure was recorded at 179/93, and her examination was otherwise unremarkable. Labs showed PH 7.477, PCO2 26, HCO3 18.5, BNP 531. A chest X-ray showed no infiltrates. She received treatment with oxygen via nasal cannula, Solumedrol IV, and inhalers. Additionally, she tested positive for Influenza A and was prescribed Tamiflu 75 mg. * The patient has a history of febrile seizures as a child; however, in recent years, she has been experiencing episodes of panic attacks. During these episodes, she sometimes displays facial grimaces that last for about a minute, and she does not remember the episodes afterward. Her boyfriend has recorded several of these episodes, and she is concerned that she might have an underlying seizure disorder. Dr. Pruett had suggested that she see a neurologist, but due to significant stress, financial issues, and depression, she missed the appointment. She denied any suicidal ideation. She burst into tears while explaining this. She was advised to seek outpatient care with both a neurologist and a psychiatrist to address these concerns. On July 13, 2024, the patient reported improvement in her overall symptoms and was on room air. She is feeling much better and is able to ambulate indepen dently. The patient is medically stable for discharge and can be followed up with primary care provider as an outpatient. Procedure(s): [place] [address] [address] IMAGING REPORT Signed PATIENT: BRIAN GAN MR#: [id number] : 1975 SEX: F AGE: 48 LOCATION: [facility] ORDER 37 STATUS: REG ER REPORT#: [id number] SERVICE 36 REASON: CHEST PAIN ORDERING PHYSICIAN: CIRILO RICHARD PROCEDURE: CXR1VW - CHEST 1VW CHEST 1VW CLINICAL HISTORY: CHEST PAIN COMPARISON: 05/05/2024 TECHNIQUE: Single view of the chest was obtained. FINDINGS: Lungs are clear. Cardiac size is at the upper limits of normal to mildly enlarged. The bony structures are within normal limits. IMPRESSION: Borderline heart size. DICTATED BY: BLANCA SMILEY DO DATE: 07/12/242036 ELECTRONICALLY SIGNED BY: BLANCA SMILEY DO DATE: 07/12/242040 Assessment/Plan: ASSESSMENT: Positive influenza a, POA Mild thrombocytopenia, POA Mild hypoxemia, improving POA Pulmonary hypertension Grade 3 Hyperglycemia without h/o diabetes Hypomagnesemia Admission Date: 07/12/2024 Discharge Date: 07/13/2024 Home medications: Continued Discharge medications: Start taking Tamiflu 75 mg BID PO for 5 days. Start taking Robitussin cough and chest congestion DM 10 ML Q8 as needed The patient is out of Sildenafil which she has been taking for Pulmonary hypertension. Prescription for 7 days was sent Disposition: Home Condition: Stable Follow up appointment:Follow up with the primary care provider within 7 days of discharge. 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 Follow up with the neurologist within 2 weeks of panic attacks/seizure like symptoms. Follow up with psychiatrist for management management of anxiety, depression and panic disorder. We reinforced the importance of medication compliance and follow up appointment with the provider. Discharge Instructions: Stay home and avoid contact with others, except for medical care. Drink water, juice, and warm soups to help keep fluids in your body. Cover your coughs and sneezes. Clean your hands often with soap and water or an alcohol-based hand rub. Take the medications as prescribed. Visit the nearest emergency department or call 911 should you experience chest pain, shortness of breath, dizziness or any lifethreatening symptoms. Home Medications: Active Scripts Sildenafil Citrate (Sildenafil) 20 Mg Tablet, 20 MG PO DAILY for 7 Days, #7 TAB Prov:AKIKO LEBLANC MD 07/13/24 Guaifenesin/Dextromethorphan (Robitussin Cough-Chest Dm Liq) 100 Mg-5 Mg/5 Ml Liquid, 10 ML PO Q8H for 7 Days, #210 ML 0 Refills Prov:AKIKO LEBLANC MD 07/13/24 Oseltamivir Phosphate (Tamiflu) 75 Mg Cap, 75 MG PO BID, #7 CAP Prov:AKIKO LEBLANC MD 07/13/24 Ibuprofen (Ibuprofen) 600 Mg Tablet, 600 MG PO Q6H PRN for PAIN, #30 TAB Prov:SANDEEP WALLACE NP 05/05/24 Methylprednisolone (Medrol) 4 Mg Tab.ds.pk, 1 TAB PO AD for 6 Days, #21 TAB 0 Refills 6 on day 1 then reduce by one tablet daily until gone Prov:SANDEEP WALLACE NP 05/05/24 Midodrine HCl (Midodrine HCl) 5 Mg Tablet, 5 MG PO TID for 30 Days, #90 TAB 0 Refills Prov:BARRY CASTANEDA MD 06/30/23 New Medications: Guaifenesin/Dextromethorphan (Robitussin Cough-Chest Dm Liq) 100 Mg-5 Mg/5 Ml Liquid 10 ML PO Q8H for 7 Days, #210 ML 0 Refills Sildenafil Citrate (Sildenafil) 20 Mg Tablet 20 MG PO DAILY for 7 Days, #7 TAB Oseltamivir Phosphate (Tamiflu) 75 Mg Cap 75 MG PO BID, #7 CAP Continued Medications: Ibuprofen (Ibuprofen) 600 Mg Tablet 600 MG PO Q6H PRN for PAIN, #30 TAB Methylprednisolone (Medrol) 4 Mg Tab.ds.pk 1 TAB PO AD for 6 Days, #21 TAB 0 Refills 6 on day 1 then reduce by one tablet daily until gone Midodrine HCl (Midodrine HCl) 5 Mg Tablet 5 MG PO TID for 30 Days, #90 TAB 0 Refills Time spent arranging discharge: 31-60 minutes ATTESTATION BY PHYSICIAN I have seen and examined the patient. I reviewed the documentation, medical decision making, and treatment plan as noted by the resident provider above. I agree with the findings and plan of care. Dhruv Tomas MD, MANALI MD Jul 13, 2024 17:12
[2024-07-13 17:32] VITALS: BP 122/75; PULSE 89; RESP 18; TEMP 98.2; O2SAT 96
== END 2024-07-13 18:08 | disposition home or self-care (01) ==
LOC: EDH 19:21 → EDHIP 21:40 → INTOOBSV 21:40 → EDHIP 07-13 18:08
PROVIDERS: ADMIT Internal Medicine; ATTEND Internal Medicine
DX: J10.1 Influenza due to other identified influenza virus with other respiratory manifestations (principal); Z20.822 Contact with and (suspected) exposure to COVID-19; D69.6 Thrombocytopenia, unspecified; I27.20 Pulmonary hypertension, unspecified; R09.02 Hypoxemia; R73.9 Hyperglycemia, unspecified; E83.42 Hypomagnesemia; R06.03 Acute respiratory distress; F41.0 Panic disorder [episodic paroxysmal anxiety]; I10 Essential (primary) hypertension; Z87.891 Personal history of nicotine dependence; Z90.49 Acquired absence of other specified parts of digestive tract; Z90.710 Acquired absence of both cervix and uterus; Z79.899 Other long term (current) drug therapy
CPT/HCPCS: 96375; 82435; 82550; 82947; 84484; 84132; 84295; 80048 ×2; 82803; 83880; 85025 ×2; 85018; 87804 ×2; 83605; 36415 ×2; 87635; 71045; 99291; 93005; 36600; 94640; 96376; 96365; 83735; 84100; G0378 ×20; J2919; J2405; J2270 ×2; J3475; 94664; 96374